=== PATIENT | male | born 1960 | race Hispanic/Latino ===

== ENCOUNTER 2017-04-16 06:53 | Inpatient (IN) | payer OTHER ==
[~2017-04-16] VITALS: Ht 167.6 cm; Wt 63.9 kg
[2017-04-16] MEDS ORDERED: IPRATROPIUM/ALBUTEROL SULFATE 3 ML SOLUTION IH ONE (07:01)
[2017-04-16] MEDS ORDERED: ALBUTEROL SULFATE 0.083% 2.5 MG/3 ML INH IH ONE (07:11)
[2017-04-16] MEDS ORDERED: SODIUM CHLORIDE 0.9% 1000ML 1,000 ML IV ONE ×2 (07:18→10:42)
[2017-04-16] MEDS ORDERED: DEXAMETHASONE SOD PHOSPHATE 10MG/ML 1ML VIAL ONE (07:18)
[2017-04-16 08:26] LABS: BASOPHILS % (AUTO) 0.8 % (0.0-5.0); EOSINOPHILS % (AUTO) 40.2 % (0.0-8.0); HEMATOCRIT 47.6 % (42-54); LYMPHOCYTES % (AUTO) 25.7 % (21.0-51.0); MEAN CORPUSCULAR HEMOGLOBIN 32.7 pg (27.0-33.0); MEAN CORPUSCULAR HGB CONC 34.6 g/dL (32.0-36.0); MEAN CORPUSCULAR VOLUME 94.5 fL (79-99); MONOCYTES % (AUTO) 6.8 % (3.0-13.0); NEUTROPHILS % (AUTO) 26.5 % (40.0-77.0); PLATELET COUNT (AUTO) 261 K/uL (130-400); RED BLOOD CELL COUNT(AUTO) 5.04 MIL/uL (4.50-6.20); WHITE BLOOD COUNT (AUTO) 7.1 K/uL (4.8-10.8)
[2017-04-16 08:33] LABS: CREATININE 0.6 mg/dL (0.5-1.5); POTASSIUM 4.1 mmol/L (3.5-5.1)
[2017-04-16 08:40] LABS: ALBUMIN 3.7 g/dL (3.5-5.0); BILIRUBIN,DIRECT 0.2 mg/dL (0.0-0.3); BILIRUBIN,TOTAL 1.1 mg/dL (0.2-1.0); TOTAL PROTEIN, SERUM 7.1 g/dL (6.0-8.3)
[2017-04-16 09:02] LABS: ABG BASE EXCESS -0.5 mmol/L (-2.0-3.0); ABG HCO3 23.9 mmol/L (21.0-28.0); ABG OXYGEN SATURATION 96.2 % (95.0-99.0); ABG PCO2 39 mmHg (35-48)
[2017-04-16 09:07] LABS: B-TYPE NATRIURETIC PEPTIDE < 5 pg/mL (0-100)
[2017-04-16] MEDS ORDERED: MORPHINE SULFATE 2 MG/ML 1ML SYG IV PRN (09:30)
[2017-04-16] MEDS ORDERED: LACTULOSE 20 GM/30 ML UDCUP PO PRN (09:30)
[2017-04-16] MEDS ORDERED: GUAIFENESIN-DM 200/20 MG 10 ML PO PRN (09:30)
[2017-04-16] MEDS: SODIUM CHLORIDE 0.9% 1000ML 1,000 ML IV SCH ×2 (09:30→17:58)
[2017-04-16] MEDS ORDERED: NITROGLYCERIN 0.4 MG SL TAB SL PRN (09:30)
[2017-04-16] MEDS ORDERED: MAG HYDROX/AL HYDROX/SIMETH ES 30 ML SUSP UDCUP PO PRN (09:30)
[2017-04-16] MEDS ORDERED: ACETAMINOPHEN-CODEINE 300/30MG TAB PO PRN ×2 (09:30)
[2017-04-16] MEDS: METHYLPREDNISOLONE SOD SUCC 125MG/2ML VIAL IV SCH ×2 (09:30→18:04)
[2017-04-16] MEDS: DOXYCYCLINE 100MG+NS 250ML 250 ML IV SCH ×2 (09:30→20:37)
[2017-04-16] MEDS ORDERED: HYDRALAZINE HCL 20 MG/ML VIAL IV PRN (09:30)
[2017-04-16] MEDS ORDERED: MORPHINE SULFATE 4 MG/1ML SYG IV PRN (09:30)
[2017-04-16] MEDS ORDERED: ACETAMINOPHEN 325 MG TAB PO PRN ×2 (09:30)
[2017-04-16] MEDS ORDERED: ONDANSETRON HCL 4 MG/2 ML VIAL IV PRN (09:30)
[2017-04-16] MEDS: IPRATROPIUM/ALBUTEROL SULFATE 3 ML SOLUTION IH SCH ×4 (10:00→22:18)
[2017-04-16] MEDS ORDERED: METHYLPREDNISOLONE SOD SUCC 125MG/2ML VIAL ONE (10:42)
[2017-04-16] MEDS ORDERED: DOXYCYCLINE 100MG+NS 250ML 250 ML IV ONE (10:42)
[2017-04-16] MEDS ORDERED: ENOXAPARIN SODIUM 40 MG/0.4 ML SYRINGE SQ ONE (10:42)
[2017-04-16] MEDS ORDERED: FAMOTIDINE/PF 20 MG/2 ML VIAL IV ONE (10:43)
[2017-04-16 15:00] VITALS: BP 145/89
[2017-04-16] MEDS ORDERED: D-ME118S56 PO (15:33)
[2017-04-16] MEDS ORDERED: BUDE180A2 IH (15:33)
[2017-04-16] MEDS ORDERED: CEPH500C2 PO (15:33)
[2017-04-16] MEDS ORDERED: ALBU0.63 IH (15:33)
[2017-04-16] MEDS: FLU VACC QS2017-18 36MOS UP/PF 60 MCG/0.5 ML ML IM SCH (16:45)
[2017-04-16 19:00] VITALS: BP 146/96
[2017-04-16] MEDS: FAMOTIDINE/PF 20 MG/2 ML VIAL IV SCH (20:39)
[2017-04-16 23:00] VITALS: BP 157/94
[2017-04-17] MEDS: METHYLPREDNISOLONE SOD SUCC 125MG/2ML VIAL IV SCH (01:40)
[2017-04-17] MEDS: IPRATROPIUM/ALBUTEROL SULFATE 3 ML SOLUTION IH SCH ×6 (01:47→22:43)
[2017-04-17 03:00] VITALS: BP 142/94
[2017-04-17 04:14] LABS: HEMATOCRIT 41.5 % (42-54); MEAN CORPUSCULAR HEMOGLOBIN 32.6 pg (27.0-33.0); MEAN CORPUSCULAR HGB CONC 34.8 g/dL (32.0-36.0); MEAN CORPUSCULAR VOLUME 93.7 fL (79-99); NUCLEATED RED BLOOD CELLS 0.1 % (0.0-0.19); PLATELET COUNT (AUTO) 248 K/uL (130-400); RED BLOOD CELL COUNT(AUTO) 4.43 MIL/uL (4.50-6.20); WHITE BLOOD COUNT (AUTO) 4.5 K/uL (4.8-10.8)
[2017-04-17 04:39] LABS: CREATININE 0.7 mg/dL (0.5-1.5); POTASSIUM 3.8 mmol/L (3.5-5.1)
[2017-04-17] MEDS: SODIUM CHLORIDE 0.9% 1000ML 1,000 ML IV SCH (04:40)
[2017-04-17 07:00] VITALS: BP 149/90
[2017-04-17] MEDS: DOXYCYCLINE 100MG+NS 250ML 250 ML IV SCH ×2 (08:25→21:25)
[2017-04-17] MEDS: ENOXAPARIN SODIUM 40 MG/0.4 ML SYRINGE SQ SCH (08:25)
[2017-04-17] MEDS: FAMOTIDINE/PF 20 MG/2 ML VIAL IV SCH ×2 (08:25→21:25)
[2017-04-17] MEDS: METHYLPREDNISOLONE SOD SUCC 40MG/ML 1ML IVP SCH ×3 (08:29→22:00)
[2017-04-17] MEDS ORDERED: METHYLPREDNISOLONE SOD SUCC 40MG/ML 1ML IVP SCH (09:30)
[2017-04-17 11:00] VITALS: BP 137/80
[2017-04-17] MEDS: BROMPHENIR PSEUDOEPHED DM PO SCH (12:00)
[2017-04-17] MEDS: FLU VACC QS2017-18 36MOS UP/PF 60 MCG/0.5 ML ML IM SCH (16:09)
[2017-04-17 16:36] VITALS: BP 135/84
[2017-04-17 19:07] VITALS: BP 149/93
[2017-04-17] MEDS: BUDESONIDE 0.5 MG/2 ML INH IH SCH (19:12)
[2017-04-17] MEDS ORDERED: METHYLPREDNISOLONE SOD SUCC 40MG/ML 1ML ONE (20:49)
[2017-04-17 23:17] VITALS: BP 132/81
[2017-04-18] MEDS: IPRATROPIUM/ALBUTEROL SULFATE 3 ML SOLUTION IH SCH ×6 (01:49→21:54)
[2017-04-18 03:53] VITALS: BP 129/86
[2017-04-18 04:33] LABS: CREATININE 0.7 mg/dL (0.5-1.5); POTASSIUM 3.7 mmol/L (3.5-5.1)
[2017-04-18] MEDS: METHYLPREDNISOLONE SOD SUCC 40MG/ML 1ML IVP SCH ×3 (05:30→20:57)
[2017-04-18] MEDS: BUDESONIDE 0.5 MG/2 ML INH IH SCH ×2 (05:57→18:22)
[2017-04-18 07:42] VITALS: BP 117/97
[2017-04-18] MEDS ORDERED: IOPAMIDOL-370 100 ML VIAL IV ONE (08:01)
[2017-04-18] MEDS: DOXYCYCLINE 100MG+NS 250ML 250 ML IV SCH ×2 (08:06→20:53)
[2017-04-18] MEDS: ENOXAPARIN SODIUM 40 MG/0.4 ML SYRINGE SQ SCH (08:06)
[2017-04-18] MEDS: FAMOTIDINE/PF 20 MG/2 ML VIAL IV SCH ×2 (08:06→20:53)
[2017-04-18 11:00] VITALS: BP 150/94
[2017-04-18] MEDS: BROMPHENIR PSEUDOEPHED DM PO SCH ×2 (11:24→18:00)
[2017-04-18] MEDS: FLU VACC QS2017-18 36MOS UP/PF 60 MCG/0.5 ML ML IM SCH (16:06)
[2017-04-18 16:07] VITALS: BP 135/81
[2017-04-18 19:09] VITALS: BP 146/91
[2017-04-18 23:13] VITALS: BP 147/95
[2017-04-19] MEDS: IPRATROPIUM/ALBUTEROL SULFATE 3 ML SOLUTION IH SCH ×6 (01:55→21:58)
[2017-04-19 03:30] VITALS: BP 144/91
[2017-04-19 03:41] LABS: HEMATOCRIT 41.4 % (42-54); MEAN CORPUSCULAR HEMOGLOBIN 32.4 pg (27.0-33.0); MEAN CORPUSCULAR HGB CONC 34.6 g/dL (32.0-36.0); MEAN CORPUSCULAR VOLUME 93.4 fL (79-99); PLATELET COUNT (AUTO) 231 K/uL (130-400); RED BLOOD CELL COUNT(AUTO) 4.43 MIL/uL (4.50-6.20); RED CELL DISTRIBUTION WIDTH 14.1 % (11.0-15.5); WHITE BLOOD COUNT (AUTO) 5.6 K/uL (4.8-10.8)
[2017-04-19 04:03] LABS: CREATININE 0.6 mg/dL (0.5-1.5); POTASSIUM 4.1 mmol/L (3.5-5.1)
[2017-04-19] MEDS: METHYLPREDNISOLONE SOD SUCC 40MG/ML 1ML IVP SCH ×3 (07:11→20:06)
[2017-04-19] MEDS: BUDESONIDE 0.5 MG/2 ML INH IH SCH ×2 (07:15→17:55)
[2017-04-19 07:16] VITALS: BP 134/83
[2017-04-19] MEDS: FAMOTIDINE/PF 20 MG/2 ML VIAL IV SCH ×2 (08:41→20:04)
[2017-04-19] MEDS: DOXYCYCLINE 100MG+NS 250ML 250 ML IV SCH ×2 (08:42→20:06)
[2017-04-19] MEDS: ENOXAPARIN SODIUM 40 MG/0.4 ML SYRINGE SQ SCH (08:42)
[2017-04-19 11:10] VITALS: BP 140/94
[2017-04-19] MEDS: BROMPHENIR PSEUDOEPHED DM PO SCH (11:42)
[2017-04-19 16:05] VITALS: BP 130/87
[2017-04-19] MEDS: FLU VACC QS2017-18 36MOS UP/PF 60 MCG/0.5 ML ML IM SCH (16:32)
[2017-04-19 19:06] VITALS: BP 137/84
[2017-04-19 23:06] VITALS: BP 137/87
[2017-04-20] MEDS: IPRATROPIUM/ALBUTEROL SULFATE 3 ML SOLUTION IH SCH ×5 (02:09→18:23)
[2017-04-20 03:04] VITALS: BP 134/85
[2017-04-20] MEDS: METHYLPREDNISOLONE SOD SUCC 40MG/ML 1ML IVP SCH ×2 (06:00→14:42)
[2017-04-20] MEDS: BUDESONIDE 0.5 MG/2 ML INH IH SCH ×2 (06:38→18:38)
[2017-04-20 08:06] VITALS: BP 126/92
[2017-04-20] MEDS: BROMPHENIR PSEUDOEPHED DM PO SCH ×2 (09:19→12:00)
[2017-04-20] MEDS: ENOXAPARIN SODIUM 40 MG/0.4 ML SYRINGE SQ SCH (09:21)
[2017-04-20] MEDS: FAMOTIDINE/PF 20 MG/2 ML VIAL IV SCH (09:21)
[2017-04-20] MEDS: DOXYCYCLINE 100MG+NS 250ML 250 ML IV SCH (09:21)
[2017-04-20] MEDS: FLU VACC QS2017-18 36MOS UP/PF 60 MCG/0.5 ML ML IM SCH (09:36)
[2017-04-20 11:25] VITALS: BP 143/79
[2017-04-20 16:00] VITALS: BP 144/95
== END 2017-04-20 18:53 | disposition home or self-care (01) | DRG 189 ==
LOC: EDH 06:53 → EDHIP 09:35 → 2DH 14:50
PROVIDERS: ADMIT Internal Medicine; ATTEND Internal Medicine
PROC: 3E0234Z Introduction of Serum, Toxoid and Vaccine into Muscle, Percutaneous Approach (ICD-10-PCS; principal; 2017-04-16)
DX: J96.01 Acute respiratory failure with hypoxia (principal); I26.99 Other pulmonary embolism without acute cor pulmonale; J44.1 Chronic obstructive pulmonary disease with (acute) exacerbation; J45.901 Unspecified asthma with (acute) exacerbation; Z99.81 Dependence on supplemental oxygen; Z23 Encounter for immunization
CPT/HCPCS: 36415; 36600; 71045; 71275; 80048; 80076; 82550; 82803; 83880; 84484; 85025; 85027; 87804; 93005; 94640; 94664; 94760; 99291; J1100; J1650; J2920; J2930; J3490; J7030; Q2038; Q9967

== ENCOUNTER → 2017-07-08 | Outpatient (CLI) | payer OTHER ==
[~2017-07-08] MED LIST: ALBU0.63 IH; ALBUTEROL SULFATE 0.083% 2.5 MG/3 ML INH IH ONE; BUDE180A2 IH; D-ME118S56 PO
[2017-07-08 14:07] LABS: ABG BASE EXCESS -1.1 mmol/L (-2.0-3.0); ABG HCO3 22.8 mmol/L (21.0-28.0); ABG OXYGEN SATURATION 97.3 % (95.0-99.0); ABG PCO2 36 mmHg (35-48)
== END | disposition home or self-care (01) ==
LOC: RESP 12:53
PROVIDERS: ATTEND Internal Medicine
DX: J45.998 Other asthma (principal); J47.9 Bronchiectasis, uncomplicated
CPT/HCPCS: 36600; 82803; 94060; 94727; 94729; 94760

== ENCOUNTER → 2018-10-28 | Outpatient (CLI) | payer OTHER ==
[~2018-10-28] MED LIST changes: -ALBUTEROL SULFATE 0.083% 2.5 MG/3 ML INH IH ONE
== END | disposition home or self-care (01) ==
LOC: RAH 13:01
PROVIDERS: ATTEND Otolaryngology Plastic Surgery within the Head & Neck
DX: J34.2 Deviated nasal septum (principal); J32.9 Chronic sinusitis, unspecified; J33.0 Polyp of nasal cavity
CPT/HCPCS: 70486

== ENCOUNTER 2018-11-25 10:59 | Day surgery (SDC) | payer OTHER ==
[2018-11-23 17:35] LABS: BASOPHILS % (AUTO) 1.6 % (0.0-5.0); EOSINOPHILS % (AUTO) 29.5 % (0.0-8.0); HEMATOCRIT 43.1 % (42-54); LYMPHOCYTES % (AUTO) 28.4 % (21.0-51.0); MEAN CORPUSCULAR HEMOGLOBIN 32.7 pg (27.0-33.0); MEAN CORPUSCULAR HGB CONC 34.2 g/dL (32.0-36.0); MEAN CORPUSCULAR VOLUME 95.7 fL (79-99); MONOCYTES % (AUTO) 7.2 % (3.0-13.0); NEUTROPHILS % (AUTO) 33.3 % (40.0-77.0); PLATELET COUNT (AUTO) 200 K/uL (130-400); RED CELL DISTRIBUTION WIDTH 13.1 % (11.0-15.5); WHITE BLOOD COUNT (AUTO) 8.3 K/uL (4.8-10.8)
[2018-11-23 17:38] VITALS: BP 118/70
[2018-11-23 17:46] LABS: INR 0.95 (0.85-1.15); PARTIAL THROMBOPLASTIN TIME 25.3 SEC (26.3-35.5)
[~2018-11-25] VITALS: Ht 167.6 cm; Wt 65.2 kg
[2018-11-25] VITALS (15 sets, daily range): BP systolic 128–173; BP diastolic 76–96
[2018-11-25] MEDS ORDERED: LACTATED RINGERS 1000ML 1,000 ML IV ONE (11:25)
[2018-11-25] MEDS ORDERED: ARTIFICIAL TEARS 3.5 GM OINTMENT ONE (11:42)
[2018-11-25] MEDS ORDERED: SUB TO ALBUTEROL 2.5MG/3ML NEBULES PER P&T IH ONE (11:42)
[2018-11-25] MEDS ORDERED: ROCURONIUM 10MG/1ML SYR 10 MG/ML ML ONE (11:43)
[2018-11-25] MEDS ORDERED: PROPOFOL 10 MG/ML 20ML VIAL IV ONE (11:43)
[2018-11-25] MEDS ORDERED: MIDAZOLAM HCL 1 MG/ML 2ML VIAL ONE (11:43)
[2018-11-25] MEDS ORDERED: LIDOCAINE PF 2% 5ML ABBOJECT ONE (11:43)
[2018-11-25] MEDS ORDERED: FENTANYL CITRATE PF 50 MCG/1 ML 2ML VIAL ONE ×2 (11:44→12:47)
[2018-11-25] MEDS ORDERED: LIDOCAINE 1%-EPI 1:100,000 20 ML VIAL IJ ONE (11:50)
[2018-11-25] MEDS ORDERED: OXYMETAZOLINE HCL SPRAY 15 ML BOTTLE ONE (11:50)
[2018-11-25] MEDS ORDERED: EPINEPHRINE 1 MG/ML 30ML VIAL IJ ONE (11:50)
[2018-11-25] MEDS ORDERED: BACITRACIN 28.4 GM OINT TP ONE (11:50)
[2018-11-25] MEDS ORDERED: FEXO1TAB8 PO (11:51)
[2018-11-25] MEDS ORDERED: BUDE10.22 IH (11:54)
[2018-11-25] MEDS ORDERED: CEFAZOLIN SODIUM 1 GM VIAL ONE (12:28)
[2018-11-25] MEDS ORDERED: DEXAMETHASONE SOD PHOSPHATE 10MG/ML 1ML VIAL ONE ×2 (12:45→13:38)
[2018-11-25] MEDS ORDERED: NEOSTIGMINE 5MG/5ML SYR IV ONE (12:51)
[2018-11-25] MEDS ORDERED: GLYCOPYRROLATE 1 MG/5 ML SYRINGE ONE (12:51)
[2018-11-25] MEDS ORDERED: ONDANSETRON HCL 4 MG/2 ML VIAL ONE (13:40)
[2018-11-25] MEDS ORDERED: MORPHINE SULFATE 4 MG/1ML SYG ONE (14:14)
[2018-11-25] MEDS ORDERED: MEPERIDINE-PF 25 MG/ML SYG ONE (14:57)
[2018-11-25] MEDS ORDERED: HYDRALAZINE HCL 20 MG/ML VIAL ONE (14:57)
--- NOTE | 2018-11-25 16:45 | NUR ---
PT HAD NO COMPLICATION AND STABLE. 4X 4 GAUZE APPLIED TO OUTER NOSE. F/U APPT. SCHEDULED 11-26-2018 AT 8:45AM. RX WAS GIVEN TO , PT. LEFT VIA WHEEL CHAIR IN PVT CAR.
== END 2018-11-25 16:29 | disposition home or self-care (01) ==
LOC: DAH 10:59
PROVIDERS: ATTEND Otolaryngology Plastic Surgery within the Head & Neck
DX: J34.3 Hypertrophy of nasal turbinates (principal); J34.89 Other specified disorders of nose and nasal sinuses; J33.9 Nasal polyp, unspecified; J44.9 Chronic obstructive pulmonary disease, unspecified; F15.90 Other stimulant use, unspecified, uncomplicated; Z82.49 Family history of ischemic heart disease and other diseases of the circulatory system; Z79.899 Other long term (current) drug therapy; Z82.5 Family history of asthma and other chronic lower respiratory diseases
CPT/HCPCS: 30140; 30520; 30999; 31253; 31256; 31259; 36415; 61782; 85025; 85610; 85730; 88304; 88311; A4215; A4221; A4222; A4223; A4649 ×4; A4663; J0171; J0360; J0690; J1100 ×2; J2001; J2175; J2250; J2270; J2405; J2704; J2710; J3010 ×2; J3490 ×2; J7040; J7120

== ENCOUNTER → 2020-10-30 | Outpatient (CLI) | payer OTHER ==
[~2020-10-30] MED LIST changes: -ALBU0.63 IH; +BUDE10.22 IH; -BUDE180A2 IH; -D-ME118S56 PO; +FEXO1TAB8 PO
[2020-10-30 08:48] LABS: BASOPHILS % (AUTO) 0.7 % (0.0-5.0); EOSINOPHILS % (AUTO) 40.5 % (0.0-8.0); HEMATOCRIT 45.2 % (42-54); LYMPHOCYTES % (AUTO) 29.9 % (21.0-51.0); MEAN CORPUSCULAR HEMOGLOBIN 32.4 pg (27.0-33.0); MEAN CORPUSCULAR HGB CONC 34.1 g/dL (32.0-36.0); MONOCYTES % (AUTO) 6.8 % (3.0-13.0); NEUTROPHILS % (AUTO) 21.8 % (40.0-77.0); PLATELET COUNT (AUTO) 203 K/uL (130-400); RED BLOOD CELL COUNT(AUTO) 4.76 MIL/uL (4.50-6.20); RED CELL DISTRIBUTION WIDTH 12.9 % (11.0-15.5); WHITE BLOOD COUNT (AUTO) 7.6 K/uL (4.8-10.8)
[2020-10-30 08:54] LABS: APPEARANCE,URINE Clear (CLEAR); BILIRUBIN,URINE Negative (NEGATIVE); COLOR,URINE Yellow (YELLOW); GLUCOSE, URINE (UA) Negative (NEGATIVE); KETONES,URINE Negative (NEGATIVE); LEUKOCYTE ESTERASE ,URINE Negative (NEGATIVE); NITRATE,URINE Negative (NEGATIVE); OCCULT BLOOD,URINE Negative (NEGATIVE); PH,URINE 5.5 (5.0-8.0); PROTEIN,URINE Negative (NEGATIVE); UROBILINOGEN,URINE 0.2 mg/dL (0.2-1.0)
[2020-10-30 09:12] LABS: ALBUMIN 3.6 g/dL (3.5-5.0); BILIRUBIN,TOTAL 1.3 mg/dL (0.2-1.0); CREATININE 0.7 mg/dL (0.5-1.5); POTASSIUM 4.5 mmol/L (3.5-5.1); THYROID STIMULATING HORMONE 1.96 uIU/mL (0.36-3.74); TOTAL PROTEIN, SERUM 7.7 g/dL (6.0-8.3)
== END | disposition home or self-care (01) ==
LOC: RAH 10-29 13:44
PROVIDERS: ATTEND Family Medicine
DX: R06.89 Other abnormalities of breathing (principal)
CPT/HCPCS: 36415; 80053; 80061; 81003; 84443; 85025